=== PATIENT | male | born 1985 | race Caucasian/White ===

== ENCOUNTER → 2020-10-06 | Outpatient (CLI) | payer OTHER ==
--- NOTE | 2020-10-06 14:45 | KCIC ---
EXAM: MRI RIGHT KNEE DATE: 10/06/2020 11:01 AM CLINICAL INDICATION: Right knee pain-Lateral knee pain a couple of months, no injury, swelling. COMPARISON: None. TECHNIQUE: Multiplanar, multisequence MRI of the RIGHT knee was performed without contrast. FINDINGS: Small knee joint effusion. Trace Landrum's cyst. ACL and PCL are intact. MCL, fibular collateral ligament, biceps femoris and IT band are intact. Popliteus is intact. Extensor mechanism is intact. Neutral patellar tracking. Suprapatellar fat pad edema may be seen with anterior knee pain/impingement. Medial meniscus: Trace free edge blunting body segment medial meniscus may represent shallow radial t ear. Lateral meniscus: Intact No fracture or osteonecrosis. Articular cartilage is grossly preserved. IMPRESSION: 1. Suprapatellar fat pad edema may be seen with anterior knee pain/impingement. 2. Trace free edge blunting body segment medial meniscus may represent shallow radial tear. 3. Trace Landrum's cyst. Small knee joint effusion. Electronically signed by: Vincent Trivedi MD (10/06/2020 2:43 PM) [facility]
== END ==
LOC: KCIC MRI 10:44
PROVIDERS: ATTEND Nurse Practitioner Family
DX: M25.461 Effusion, right knee (principal); M79.4 Hypertrophy of (infrapatellar) fat pad; R60.9 Edema, unspecified
CPT/HCPCS: 73721

== ENCOUNTER 2021-01-14 09:59 | Day surgery (SDC) | payer OTHER ==
[~2021-01-14] VITALS: Ht 185.4 cm; Wt 82.0 kg
[~2021-01-14 09:59] MED LIST: DEXAMETHASONE SOD PHOS 4 MG/ML VIAL ONE; FAMOTIDINE 20 MG/2 ML VIAL ONE; HYDROmorphone 2 MG/ML VIAL IVP PRN; IV RINGERS,LACTATED 1000ML 1,000 ML IV SCH; KETOROLAC 30 MG/ML VIAL. ONE; LIDOCAINE 1% PF 5 ML VIAL. ONE; MORPHINE SULFATE 2 MG/ML INJ. IVP PRN; PROCHLORPERAZINE 10 MG/2 ML VIAL. IVP PRN; PROPOFOL 10 MG/ML (20ML) VIAL. IV ONE; fentaNYL PF VIAL 100 MCG/2 ML VIAL IVP PRN; fentaNYL PF VIAL 100 MCG/2 ML VIAL ONE
[2021-01-14 10:27] VITALS: BP 135/72
[2021-01-14] MEDS ORDERED: TRAM50TA PO (10:48)
[2021-01-14] MEDS ORDERED: BUPIVACAINE-EPI 0.25% 30 ML VIAL KIT. ONE (11:13)
[2021-01-14] MEDS ORDERED: SEVOFLURANE 31 TO 60 MINUTES. IH ONE (11:28)
--- NOTE | 2021-01-14 11:49 | DISCH ---
DISCHARGE INSTRUCTIONS Condition on Discharge Condition on Discharge: Stable Activity After Discharge Activity Instructions for Disc: Activity as tolerated, Avoid exertion Lifting Instructions after Dis: Do not lift >10 pounds Driving Instructions after Dis: Do not drive today Weight Bearing Status after Di: Full weight bearing Wound Incision Care Other wound/incision instructi: May change dressings postoperative day #2 Follow-Up Follow up with: 10 to 14 days FAHEEM ARTEAGA Jr. DO Jan 14, 2021 11:49
--- NOTE | 2021-01-14 12:15 | OP ---
DATE OF SURGERY: 01/14/2021 PREOPERATIVE DIAGNOSIS: Hoffa's fat pad with right knee pain. POSTOPERATIVE DIAGNOSIS: Hoffa's fat pad with multiple loose bodies. PROCEDURE: Right knee arthroscopy with resection of Hoffa's fat pad, synovectomy and removal of multiple loose bodies. SURGEON: Markie Santiago Jr, DO. ASSISTANT PROFESSOR OF GERMAN: Elias Muhammad. ANESTHESIA: General. COMPLICATIONS: None. ESTIMATED BLOOD LOSS: 20 mL. We did send as far as specimen, multiple loose bodies. DESCRIPTION OF PROCEDURE: The patient was taken to the operative suite, given a general anesthetic. Right lower extremity was then prepped and draped in a sterile fashion. Inferomedial and inferolateral portals were established. Knee was insufflated with saline. Visualization of the patellofemoral joint noted this to be intact. The chondral surfaces were completely intact along the entire femoral sulcus, the entire undersurface of the patella other than very minimal change in the lateral facet, which was debrided back to stable tissue. However, upon entering the medial gutter, there were multiple loose bodies. Pictures were taken of this as well as the intraarticular portion of the knee, which also had multiple loose bodies as well. All the loose bodies were removed carefully using a shaver, this was done using the shaver itself. Many of the loose bodies were then kept and will be sent to pathology. The meniscus was noted to be intact and stable. Both the femoral and tibial sides of the joint were completely intact and stable. ACL and the PCL were intact and stable with visualization as well as with probing. The lateral compartment was also intact. However, there were multiple loose bodies also noted within the lateral gutter as well as the lateral compartment as well. After this was done for an extended amount of time, this was reinspected. Gentle massage of the posterior aspect of the capsule revealed even more loose bodies, which were removed in their entirety. After all the loose bodies were completely removed and this was inspected multiple times, instruments were then removed. Local was placed in the portal sites. Sterile dressing was applied after the wounds were reapproximated. Sterile dressing was applied. The patient was then taken from the operative bed to the postoperative bed and taken to the PACU in stable condition. SARAH DR: Zachariah TID: [id number]
[2021-01-14] MEDS ORDERED: ACETAMINOPHEN 325 MG TABLET. PO ONE (12:45)
[2021-01-14] MEDS ORDERED: traMADol 50 MG TABLET PO ONE (12:45)
[2021-01-14 12:55] VITALS: BP 128/61
--- NOTE | 2021-01-19 11:08 | PATHOLOGY ---
[facility] Accession Number: [id number] . 01 Material submitted: . knee - LOOSE BODIES RIGHT KNEE. Modifiers: right . 01 Clinical history: . MULTIPLE LOOSE BODIES R KNEE R KNEE ARTHROSCOPY RT KNEE PAIN HOFFA FAT PA . 02 Diagnosis: Soft tissue "loose bodies right knee", excision: - Fragments of reactive hyaline cartilage. - Fragments of benign synovium. (MLK:ney; 01/18/2021) MBR 01/18/2021 1709 Local . 02 Electronically signed: . Shanna Clayton MD, Pathologist NPI- [id number] . 01 Gross description: . The specimen is received in formalin, labeled "Zeb Francisco, loose bodies right knee". Received are multiple segments of white-mcclure possible bone measuring 0.6 x 0.5 x 0.1 cm in aggregate dimensions. The specimen is filtered and entirely submitted in cassette A1, following light decalcification. (CAA; 01/17/2021) QA/QA 01/17/2021 1141 Local . 02 Pathologist provided ICD-10: M25.561 . 02 CPT . 981254, [id number] Specimen Comment: A courtesy copy of this report has been sent to [phone] Specimen Comment: [id number] Specimen Comment: Report sent to / DR COLON Performed at: 01 [facility] [address], [place] [id number] MD Saleem Johnson MD Phone: [phone] Performed at: 02 [facility] [address] [place], [place] [id number] MD Nicolás Roldan MD Phone: [phone]
== END 2021-01-14 13:25 | disposition home or self-care (01) ==
LOC: SURG 09:59
PROVIDERS: ATTEND Orthopaedic Surgery
DX: M79.4 Hypertrophy of (infrapatellar) fat pad (principal); M25.561 Pain in right knee; Z79.899 Other long term (current) drug therapy; Z98.890 Other specified postprocedural states; Z72.89 Other problems related to lifestyle
CPT/HCPCS: 29874; A4930; J0690; J1100; J1885; J2704; J3010; J3490